=== PATIENT | male | born 1980 | race Two or more races ===

== ENCOUNTER 2021-11-19 01:18 | Inpatient (IN) | payer MEDICAID ==
[2021-11-19 01:40] VITALS: BP 157/87
[2021-11-19] MEDS ORDERED: LORAZEPAM INJ 2 MG/ML VIAL IV PRN (02:30)
[2021-11-19] MEDS ORDERED: ACETAMINOPHEN 325 MG TABLET PO PRN (02:30)
[2021-11-19] MEDS ORDERED: ONDANSETRON HCL/PF 4 MG/2 ML VIAL IVP PRN ×2 (02:30→06:30)
[2021-11-19] MEDS ORDERED: HYDROCODONE/APAP 5/325MG TABLET PO PRN (02:30)
[2021-11-19] MEDS ORDERED: MAGNESIUM HYDROXIDE 30 ML UDC PO PRN (02:30)
[2021-11-19] MEDS ORDERED: Z GUARD REMEDY 4 OZ OINT TP PRN (02:30)
[2021-11-19] MEDS ORDERED: MAG HYDROX/AL HYDROX/SIMETH 30 ML UDC PO PRN (02:30)
--- NOTE | 2021-11-19 02:45 | NUR ---
PLANNER INTERNSHIP NOTES PT IS A 40 YEAR OLD MALE A/O X4 [place] SPEAKING BUT CAN COMMUNICATE WELL IN [place] PT ABLE TO MAKE NEEDS KNOWN. PT ON ROOM AIR TOLERATING WELL. PT NOTED WITH IV ACCESS ON THE RFA #20G S/L FLUSHING WELL RUNNING NS@75ML/HR TOLERATING WELL NOTED WITH LFA BRUISE AND LEFT INDEX FINGER NAIL BRUISING PHOTOS TAKEN AND PLACED IN CHART. PT IS ABLE TO AMBULATE NOTED WITH STEADY GAIT. PER PT REPORTS HE HAS BEEN SOBER FOR 3 DAYS BUT HAS BEEN EXPERIENCING N/V ,TREMORS, AND ABDOMINAL PAIN.THE PAIN WORSENED OVERTIME THAT HE CHOSE TO COME TO THE HOSPITAL TO RECEIVE TREATMENT. PT PLACE DON LIQUID DIET FOR NOW TO BE ADVANCED TOLERATED.BILATERAL SIDE RAILS UP CALL LIGHT WITHIN REACH. PT ORIENTED TO ROOM AND UNIT. BELONGINGS CHECKED. ALL NEEDS MET AT THIS TIME WILL CONTINUE TO MONITOR., Addendum: 11/19/21 at 0351 by LOBO LYONS RN PT PLACED ON TELE MONITOR WITH READING SR 63 AT THIS TIME.
[2021-11-19] MEDS: CHLORDIAZEPOXIDE HCL 25 MG CAPSULE PO SCH ×3 (02:46→17:22)
[2021-11-19 02:55] VITALS: BP 157/75
[2021-11-19] MEDS ORDERED: CT SWABBABLE VALVE TRANS SET 1 EA INFUS.SET MC ONE (02:55)
[2021-11-19] MEDS ORDERED: IOHEXOL-300 100 ML VIAL IV ONE (02:55)
[2021-11-19] MEDS ORDERED: IV NS 0.9% 250 ML IV ONE (02:55)
--- NOTE | 2021-11-19 03:15 | NUR ---
ASW/ASUW TACTICAL AIR CONTROLLER NOTES STAT CT OF THE ABDOMEN WITH CONTRAST ORDERED CONSENT SIGNED CT DEPARTMENT MADE AWARE OF ORDER.
--- NOTE | 2021-11-19 04:13 | NUR ---
INSTRUCTOR ADJUNCT PHARMACY TECHNICIAN NOTES PRN NORCO 5-325MG GIVEN FOR PAIN 7/10 ABDOMINAL TOLERATED WELL. WILL CONTINUE TO MONITOR.
--- NOTE | 2021-11-19 06:25 | NUR ---
DEFENSIVE LINE COACH CLOSING NOTES PT IN BED ASLEEP AT THIS TIME. NO REPORT OF PAIN AT THIS TIME.RUNNING NS@75 ML/HR ON THE RFA #20G TOLERATING WELL. ALL NURSING NEEDS MET. ALL DUE MEDS GIVEN AND TOLERATED WELL. CALL LIGHT WITHIN REACH. TABLE WITHIN REACH. TABLE WITHIN REACH. HOB ELEVATED FOR PRECAUTIONS. BILATERAL SIDE RAILS UP X2 FOR SAFETY.PT ON TELE MONITOR READING SR.60S. NEED TO COLLECTED URINE SAMPLE FOR U/A COLLECTION CUP AT BEDSIDE PT INSTRUCTED TO CALL WHEN SPECIMEN COLLECTED.WILL ENDORSE CARE TO DAY SHIFT NURSE FOR NEETA.
[2021-11-19 06:41] VITALS: BP 135/70
--- NOTE | 2021-11-19 07:25 | NUR ---
VP CUSTOMER SERVICE OPENING NOTES RECEIVED PT IN BED AWAKE. A/O X4, ABLE TO MAKE NEEDS. ON RA, TOLERATING WELL. NO SOB NOTED. NOT IN ANY SIGN OF RESPIRATORY DISTRESS. ON CARDIAC TELE MONITOR WITH CURRENT READING SINUS RHYTHM, HR 72. IV ACCESS ON RFA G #20 INTACT AND PATENT WITH NS INFUSING AT 75ML/HR. SAFETY MEASURES IN PLACE: BED IN LOWEST AND LOCKED POSITION, SIDE RAILS UP X2, AND CALL LIGHT WITHIN REACH. WILL CONTINUE TO MONITOR PT.
[2021-11-19] MEDS: METRONIDAZOLE 500MG/ NS 100ML 500 MG in PREMIX 1 EA IV SCH ×2 (07:53→14:06)
[2021-11-19] MEDS: PANTOPRAZOLE 40 MG TABLET.DR PO SCH (07:53)
[2021-11-19] MEDS ORDERED: CIPROFLOXACIN IV RTU 400 MG in PREMIX 1 EA IV SCH (08:00)
[2021-11-19 08:09] LABS: BASOPHILS % (AUTO) 0.9 % (0.0-2.0); HEMATOCRIT 37 % (39-51); LYMPHOCYTES # (AUTO) 1.4 K/uL (0.8-4.8); LYMPHOCYTES % (AUTO) 41.7 % (20.0-44.0); MEAN CORPUSCULAR HGB CONC 32 g/dl (31.0-36.0); MEAN CORPUSCULAR VOLUME 80 fL (80-96); MONOCYTES # (AUTO) 0.3 K/uL (0.1-1.30); MONOCYTES % (AUTO) 9.7 % (2.0-12.0); NEUTROPHILS # (AUTO) 1.6 K/uL (1.8-8.9); NEUTROPHILS % (AUTO) 46.7 % (43.0-81.0); PLATELET COUNT (AUTO) 195 K/uL (150-450); RED BLOOD CELL COUNT(AUTO) 4.65 MIL/uL (4.5-6.0); WHITE BLOOD COUNT (AUTO) 3.4 K/uL (4.3-11.0)
[2021-11-19] MEDS: THIAMINE HCL 100 MG TABLET PO SCH (08:23)
[2021-11-19] MEDS: FOLIC ACID 1 MG TABLET PO SCH (08:24)
[2021-11-19 08:33] LABS: ALBUMIN 3.8 g/dL (3.4-5.0); BILIRUBIN,TOTAL 1.1 mg/dL (0.2-1.0); CALCIUM, SERUM 7.8 mg/dL (8.5-10.1); CREATININE 0.7 mg/dL (0.6-1.3); MAGNESIUM 2.3 mg/dL (1.8-2.4); POTASSIUM 3.3 mmol/L (3.5-5.1)
[2021-11-19 08:56] LABS: THYROID STIMULATING HORMONE 2.977 uIU/mL (0.358-3.74)
[2021-11-19] MEDS ORDERED: METRONIDAZOLE IV SCH (09:00)
[2021-11-19] MEDS ORDERED: NS 100 MG IV SCH (09:00)
[2021-11-19] MEDS ORDERED: INSU100V42 SQ (11:00)
[2021-11-19] MEDS ORDERED: POTASSIUM CHLORIDE 20 MEQ POWDER PACKET PO ONE (11:00)
[2021-11-19] MEDS ORDERED: AMLO2.5T4 PO (11:00)
--- NOTE | 2021-11-19 12:24 | NUR ---
RN NOTE PT SEEN BY MIKEY PHAM NP WITH ORDERS TO START PT ON MILD SLIDING SCALE.
[2021-11-19 14:23] LABS: BILIRUBIN,URINE NEGATIVE (NEGATIVE); COLOR,URINE YELLOW (YELLOW); LEUKOCYTE ESTERASE ,URINE NEGATIVE (NEGATIVE); NITRITE, URINE NEGATIVE (NEGATIVE); PROTEIN,URINE NEGATIVE (NEGATIVE); UGLUCOSE NEGATIVE (NEGATIVE); UROBILINOGEN,URINE 0.2 EU/dL (0.2)
[2021-11-19] MEDS: INSULIN REGULAR, HUMAN 100 UNIT/ML 3 ML VIAL SQ PRN ×2 (17:03→22:26)
[2021-11-19] MEDS: BLOOD SUGAR DIAGNOSTIC 1 EACH STRIP IN SCH ×2 (17:03→21:42)
[2021-11-19] MEDS ORDERED: DEXTROSE 50%-WATER 50 ML DISP.SYRIN IV PRN (17:30)
--- NOTE | 2021-11-19 19:20 | NUR ---
MS RN OPENING NOTES RECEIVED PT IN BED AWAKE. A/O X4, ABLE TO MAKE NEEDS. ON RA, TOLERATING WELL. NO SOB NOTED. NOT IN ANY SIGN OF RESPIRATORY DISTRESS. IV ACCESS ON RFA G #20 INTACT AND PATENT RUNNING WITH NS INFUSING AT 75ML/HR. SAFETY MEASURES IN PLACE: BED IN LOWEST AND LOCKED POSITION, SIDE RAILS UP X2, AND CALL LIGHT WITHIN REACH. WILL CONTINUE TO MONITOR.
--- NOTE | 2021-11-19 19:21 | NUR ---
MS RN CLOSING NOTES PT IN BED AWAKE. A/O X4, ABLE TO MAKE NEEDS. ON RA, TOLERATING WELL. NO SOB NOTED. NOT IN ANY SIGN OF RESPIRATORY DISTRESS. IV ACCESS ON RFA G #20 INTACT AND PATENT WITH NS INFUSING AT 75ML/HR. ALL NEEDS ATTENDED. KEPT CLEAN AND COMFORTABLE. SAFETY MEASURES IN PLACE: BED IN LOWEST AND LOCKED POSITION, SIDE RAILS UP X2, AND CALL LIGHT WITHIN REACH. ENDORSED TO MACHINE SHOP WORKER NURSE FOR NEETA.
[2021-11-19] MEDS ORDERED: METOCLOPRAMIDE HCL 10 MG/2 ML VIAL IV PRN (19:30)
[2021-11-19] MEDS: IV NS 0.9% 1,000 ML IV PRN (20:16)
[2021-11-19] MEDS: CIPROFLOXACIN IV RTU 400 MG in PREMIX 1 EA IV SCH (21:42)
--- NOTE | 2021-11-19 22:00 | NUR ---
RN NOTE BS CHECKED AT 155 MG/DL, 2 UNITS OF INSULIN GIVEN PER SLIDING SCALE.
[2021-11-19 23:01] VITALS: BP 135/95
[2021-11-20] MEDS: IV NS 0.9% 1,000 ML IV PRN (06:08)
[2021-11-20] MEDS: BLOOD SUGAR DIAGNOSTIC 1 EACH STRIP IN SCH ×2 (06:30→12:19)
--- NOTE | 2021-11-20 06:48 | NUR ---
MS RN CLOSING NOTES PT IN BED AWAKE. A/O X4, TURKISH SPEAKING, ABLE TO MAKE NEEDS KNOWN. ON RA, TOLERATING WELL. NO SOB NOTED. NOT IN ANY SIGN OF RESPIRATORY DISTRESS. IV ACCESS ON RFA G #20 INTACT AND PATENT WITH NS INFUSING AT 75ML/HR. ALL DUE MEDS GIVEN. MAINTAINED IN CLEAR LIQUID DIET, KEPT DRY AND CLEAN, SAFETY MEASURES IN PLACE, BED IN LOWEST AND LOCKED POSITION, SIDE RAILS UP X2, AND CALL LIGHT WITHIN REACH. WILL ENDORSE TO AM SHIFT NURSE.
[2021-11-20 06:50] LABS: BASOPHILS % (AUTO) 0.6 % (0.0-2.0); EOSINOPHILS % (AUTO) 4.3 % (0.0-6.0); HEMATOCRIT 36 % (39-51); HEMOGLOBIN 11.9 g/dL (13.5-17.5); LYMPHOCYTES # (AUTO) 1.2 K/uL (0.8-4.8); LYMPHOCYTES % (AUTO) 44.2 % (20.0-44.0); MEAN CORPUSCULAR HGB CONC 33 g/dl (31.0-36.0); MEAN CORPUSCULAR VOLUME 80 fL (80-96); MONOCYTES # (AUTO) 0.2 K/uL (0.1-1.30); MONOCYTES % (AUTO) 7.4 % (2.0-12.0); NEUTROPHILS # (AUTO) 1.2 K/uL (1.8-8.9); NEUTROPHILS % (AUTO) 43.5 % (43.0-81.0); PLATELET COUNT (AUTO) 192 K/uL (150-450); RED BLOOD CELL COUNT(AUTO) 4.57 MIL/uL (4.5-6.0); WHITE BLOOD COUNT (AUTO) 2.8 K/uL (4.3-11.0)
[2021-11-20 07:04] LABS: CALCIUM, SERUM 8.8 mg/dL (8.5-10.1); CREATININE 0.5 mg/dL (0.6-1.3); MAGNESIUM 2.1 mg/dL (1.8-2.4); POTASSIUM 3.4 mmol/L (3.5-5.1)
--- NOTE | 2021-11-20 08:11 | NUR ---
RN OPENING NOTE PATIENT RECEIVED IN BED, CALM, AO X 4, ABLE TO RESPONDS ALL STIMULI. IN NO ACUTE DISTRESS NOTED. RESPIRATORY EVEN AND UNLABORED ON ROOM AIR. SKIN IS WARM TO TOUCH, KEEP CLEAN/DRY. KEPT ELEVATED HOB FOR ENSURE AIRWAY AND ASPIRATION PRECAUTION, ALSO LOWEST POSITION OF THE BED, S/R UP X 3, BED ALARM IS ON AT ALL THE TIMES. ALL SAFETY PRECAUTION APPLIED. CALL LIGHT WITHIN REACH, WILL CONTINUE TO MONITOR.
[2021-11-20] MEDS: PANTOPRAZOLE 40 MG TABLET.DR PO SCH (08:28)
[2021-11-20] MEDS: NS 100 MG IV SCH ×2 (08:28→12:19)
[2021-11-20] MEDS: METRONIDAZOLE IV SCH ×2 (08:28→12:19)
[2021-11-20] MEDS: FOLIC ACID 1 MG TABLET PO SCH (08:28)
[2021-11-20] MEDS: CHLORDIAZEPOXIDE HCL 25 MG CAPSULE PO SCH (08:28)
[2021-11-20] MEDS: THIAMINE HCL 100 MG TABLET PO SCH (08:28)
[2021-11-20 08:33] VITALS: BP 130/98
[2021-11-20 08:38] LABS: ALBUMIN 3.7 g/dL (3.4-5.0); BILIRUBIN,DIRECT 0.3 mg/dL (0.0-0.2); BILIRUBIN,TOTAL 1.2 mg/dL (0.2-1.0); MAGNESIUM 2.1 mg/dL (1.8-2.4); TOTAL PROTEIN, SERUM 7.8 g/dL (6.4-8.2)
[2021-11-20] MEDS ORDERED: AMLODIPINE BESYLATE 2.5 MG TABLET PO SCH (09:00)
[2021-11-20] MEDS: CIPROFLOXACIN IV RTU 400 MG in PREMIX 1 EA IV SCH (09:16)
[2021-11-20] MEDS ORDERED: POTASSIUM CHLORIDE 20 MEQ TAB.PRT.SR PO SCH (10:00)
[2021-11-20] MEDS ORDERED: Folic Acid PO (10:07)
[2021-11-20] MEDS ORDERED: METR500T PO (10:08)
[2021-11-20] MEDS ORDERED: CIPR-262 PO (10:08)
[2021-11-20] MEDS ORDERED: PANT40TA49 PO (10:08)
--- NOTE | 2021-11-20 11:30 | NUR ---
PATIENT D/C TO HOME AND GIVEN DISCHARGE INSTRUCTION INCLUDE NEW MEDICATION. PATIENT IN STABLE CONDITION, SIGNED BELONGINGS, REMOVED IV BEFORE PATIENT LEAVE.
[2021-11-20] MEDS: INSULIN REGULAR, HUMAN 100 UNIT/ML 3 ML VIAL SQ PRN (11:33)
--- NOTE | 2021-11-20 13:15 | NUR ---
SW attempted to meet with pt. fro rehab referral and addiction resources. However, pt. has departed.
== END 2021-11-20 16:49 | disposition home or self-care (01) | DRG 248 ==
LOC: TELE 01:18 → MED 14:28
PROVIDERS: ADMIT Registered Nurse; ATTEND Registered Nurse
DX: A04.9 Bacterial intestinal infection, unspecified (principal); E11.9 Type 2 diabetes mellitus without complications; F10.239 Alcohol dependence with withdrawal, unspecified; K29.20 Alcoholic gastritis without bleeding; K20.80 Other esophagitis without bleeding; I10 Essential (primary) hypertension; Y90.9 Presence of alcohol in blood, level not specified; Z79.4 Long term (current) use of insulin; Z79.899 Other long term (current) drug therapy; R74.01 Elevation of levels of liver transaminase levels; W34.00XS Accidental discharge from unspecified firearms or gun, sequela; W19.XXXA Unspecified fall, initial encounter; Y92.9 Unspecified place or not applicable; M79.642 Pain in left hand; M79.645 Pain in left finger(s)
CPT/HCPCS: 36415; 74160-TC; 80048-TC; 80053-TC; 80061-TC; 80076-TC; 82140-TC; 82247-TC; 82248-TC; 82728-TC; 82962-TC; 83540-TC; 83690-TC; 83735-TC; 84100-TC; 84443-TC; 85025-TC; 87081-TC; A4216; G0378; J0744; J1815; J7030; J7050; Q9967

== ENCOUNTER 2023-03-23 20:04 | Emergency (ER) | payer MEDICAID ==
[~2023-03-23] VITALS: Ht 165.1 cm; Wt 61.2 kg
[~2023-03-23 20:04] MED LIST: AMLO2.5T4 PO; CIPR-262 PO; Folic Acid PO; INSU100V42 SQ; METR500T PO; PANT40TA49 PO
[2023-03-23 20:20] VITALS: TEMP 98
[2023-03-23] MEDS ORDERED: PANTOPRAZOLE 40 MG VIAL ONE (20:27)
[2023-03-23] MEDS: PANTOPRAZOLE 40 MG VIAL IV ONE (20:44)
[2023-03-23 20:45] VITALS: BP 147/80; O2SAT 97
[2023-03-23 20:51] LABS: BASOPHILS % (AUTO) 0.7 % (0.0-2.0); EOSINOPHILS % (AUTO) 0.2 % (0.0-6.0); HEMATOCRIT 37 % (39-51); HEMOGLOBIN 11.7 g/dL (13.5-17.5); LYMPHOCYTES # (AUTO) 1.6 K/uL (0.8-4.8); LYMPHOCYTES % (AUTO) 56.2 % (20.0-44.0); MEAN CORPUSCULAR HEMOGLOBIN 23 PG (26.0-33.0); MEAN CORPUSCULAR HGB CONC 31 g/dl (31.0-36.0); MEAN CORPUSCULAR VOLUME 74 fL (80-96); MONOCYTES # (AUTO) 0.3 K/uL (0.1-1.30); NEUTROPHILS # (AUTO) 0.9 K/uL (1.8-8.9); NEUTROPHILS % (AUTO) 31.9 % (43.0-81.0); PLATELET COUNT (AUTO) 263 K/uL (150-450); RED BLOOD CELL COUNT(AUTO) 5.05 MIL/uL (4.5-6.0); RED CELL DISTRIBUTION WIDTH 24.2 % (11.5-15.0); WHITE BLOOD COUNT (AUTO) 2.8 K/uL (4.3-11.0)
[2023-03-23 21:07] LABS: ALBUMIN 4.5 g/dL (3.4-5.0); BILIRUBIN,DIRECT 0.1 mg/dL (0.0-0.2); BILIRUBIN,TOTAL 0.3 mg/dL (0.2-1.0); CALCIUM, SERUM 8.7 mg/dL (8.5-10.1); CREATININE 0.6 mg/dL (0.6-1.3); POTASSIUM 3.6 mmol/L (3.5-5.1); TOTAL PROTEIN, SERUM 8.6 g/dL (6.4-8.2)
[2023-03-23] MEDS ORDERED: ONDANSETRON HCL/PF 4 MG/2 ML VIAL ONE (21:28)
[2023-03-23] MEDS ORDERED: MORPHINE SULFATE INJ 4 MG/ML DISP.SYRIN ONE (21:28)
[2023-03-23] MEDS: IV NS 0.9% 1,000 ML BAG IV ONE (21:33)
[2023-03-23] MEDS: MORPHINE SULFATE INJ 2 MG/ML DISP.SYRIN IV ONE (21:34)
[2023-03-23] MEDS: ONDANSETRON HCL/PF 4 MG/2 ML VIAL IVP ONE (21:34)
[2023-03-23 21:41] LABS: INR 0.95 (0.91-1.10); PARTIAL THROMBOPLASTIN TIME 27.8 SEC (24.3-34.3); PROTHROMBIN TIME 10.1 SECS (9.2-11.1)
[2023-03-23 21:42] LABS: ANISOCYTOSIS 1+; BAND % (MANUAL) 2 % (0.0-5.0); HYPOCHROMASIA 1+; LYMPHOCYTES % (MANUAL) 54 % (16-48); MONOCYTES % (MANUAL) 10 % (0-11.0); NEUTROPHILS % (MANUAL) 34 (42-76); PLATELET ESTIMATE ADEQUATE; TARGET CELLS 1+
[2023-03-23 21:43] LABS: ROULEAUX 1+; TEAR DROP CELLS RARE
[2023-03-23] MEDS ORDERED: PANT40TA2 PO (23:02)
== END 2023-03-23 23:15 | disposition home or self-care (01) ==
LOC: ER 20:07
DX: K29.20 Alcoholic gastritis without bleeding (principal); F10.20 Alcohol dependence, uncomplicated; K76.0 Fatty (change of) liver, not elsewhere classified; D61.818 Other pancytopenia; I10 Essential (primary) hypertension; E11.9 Type 2 diabetes mellitus without complications; Z90.89 Acquired absence of other organs; Z79.4 Long term (current) use of insulin; Z79.899 Other long term (current) drug therapy; Y90.9 Presence of alcohol in blood, level not specified
CPT/HCPCS: 99285; 74176; 96374; 71045; 96375; 96361; 93005; 85025; 80048; 83690; 80076; 36415; 84484 ×2; 85730; 86850; 85007; J2270; J2405; J7030; C9113